=== PATIENT | female | born 1970 | race Caucasian/White ===

== ENCOUNTER 2016-10-10 08:49 | Outpatient (CLI) | payer OTHER ==
[2016-10-10 09:14] LABS: BASOPHILS % 0.2 (0.0-1.5); EOSINOPHILS % 0.8 % (0.0-6.8); LYMPHOCYTES # 1.9 # k/uL (0.6-4.0); MEAN CORPUSCULAR HEMOGLOBIN 35.5 pg (28.0-34.0); MONOCYTES # 0.2 # k/uL (0.0-0.9); MONOCYTES % 4.8 % (0.0-11.0); NEUTROPHILS # 2.7 # k/uL (1.4-7.7)
[2016-10-10 10:03] LABS: eGFR (African) > 60; eGFR (Non-African) > 60
[2016-10-10 16:42] LABS: VALPROIC ACID LEVEL 39.3 ug/mL (50.0-100.0)
== END 2016-10-10 08:50 ==
LOC: LAB 08:49
PROVIDERS: ATTEND Nurse Practitioner Psychiatric/Mental Health
DX: Z51.81 Encounter for therapeutic drug level monitoring (principal); Z79.899 Other long term (current) drug therapy
CPT/HCPCS: 36415; 80053; 80061; 80156; 80164; 85025

== ENCOUNTER 2017-04-10 09:20 | Outpatient (CLI) | payer OTHER | END 2017-04-10 09:30 | LOC: LAB 09:20 | PROVIDERS: ATTEND Nurse Practitioner Psychiatric/Mental Health | DX: Z51.81 Encounter for therapeutic drug level monitoring (principal) | CPT/HCPCS: 36415; 84443 ==

== ENCOUNTER 2017-06-26 08:50 | Outpatient (CLI) | payer OTHER ==
[2017-06-26 09:23] LABS: BASOPHILS % 0.3 (0.0-1.5); EOSINOPHILS % 1.4 % (0.0-6.8); MEAN CORPUSCULAR HEMOGLOBIN 32.8 pg (28.0-34.0); MEAN CORPUSCULAR VOLUME 101.5 fl (80.0-100.0); MONOCYTES % 4.7 % (0.0-11.0); NEUTROPHILS # 3.5 # k/uL (1.4-7.7)
[2017-06-26 09:40] LABS: eGFR (African) > 60; eGFR (Non-African) > 60
[2017-06-26 18:11] LABS: VALPROIC ACID LEVEL 44.4 ug/mL (50.0-100.0)
== END 2017-06-26 09:00 ==
LOC: LAB 08:50
PROVIDERS: ATTEND Nurse Practitioner Psychiatric/Mental Health
DX: Z51.81 Encounter for therapeutic drug level monitoring (principal)
CPT/HCPCS: 36415; 80053; 80156; 80164; 85025

== ENCOUNTER 2017-10-09 08:49 | Outpatient (CLI) | payer OTHER ==
[2017-10-09 10:25] LABS: BASOPHILS % 0.1 (0.0-1.5); EOSINOPHILS % 0.7 % (0.0-6.8); MEAN CORPUSCULAR HEMOGLOBIN 33.2 pg (28.0-34.0); MEAN CORPUSCULAR VOLUME 103.6 fl (80.0-100.0); MONOCYTES % 4.2 % (0.0-11.0); NEUTROPHILS # 2.9 # k/uL (1.4-7.7)
[2017-10-09 10:49] LABS: eGFR (African) > 60; eGFR (Non-African) > 60
[2017-10-09 17:41] LABS: VALPROIC ACID LEVEL 35.2 ug/mL (50.0-100.0)
== END 2017-10-09 08:50 ==
LOC: LAB 08:49
PROVIDERS: ATTEND Nurse Practitioner Psychiatric/Mental Health
DX: Z79.899 Other long term (current) drug therapy (principal); Z51.81 Encounter for therapeutic drug level monitoring
CPT/HCPCS: 36415; 80053; 80061; 80156; 80164; 82306; 84443; 85025

== ENCOUNTER 2018-03-14 13:05 | Emergency (ER) | payer OTHER ==
--- NOTE | 2018-03-14 13:47 | ED Physician Documentation ---
Fall - HISTORIAN Historian: patient, other (critical care rn) - HPI Stated Complaint: Left ankle pain Chief Complaint: Lower Extremity Injury Additional Information: fell 0200hrs w/ rt ankle pain swelling bruising walks/w/asst.denies other injury Where: home Context: lost balance r: moderate Associated Symptoms:: no loss of consciousness Location of Pain/Injury: denies: head, neck Injury to Right Extremity: ankle Injury to Left Extremity: none - ROS CONST: no problems NEURO: denies: dizziness, anxiety MS/SKIN/LYMPH: denies: weakness EYES/ENT: none CVS/RESP: none GI/: denies: problems urinating, nausea, vomiting - PAST HX Past History: other (mild MR mood disorder gerd lo thryoid seizure) Allergies/Adverse Reactions: Allergies Allergy/AdvReac Type Severity Reaction Status Date / Time omeprazole [From Prilosec] Allergy Diarrhea Verified 03/14/18 13:29 omeprazole magnesium Allergy Diarrhea Verified 03/14/18 13:29 [From Prilosec] Home Medications: Ambulatory Orders Medication Instructions Recorded Acetaminophen [Tylenol Extra 500 mg PO 2 tabs po tid u2 12/08/12 Strength] Alprazolam [Xanax] 0.5 mg PO BID u2 12/08/12 Bismuth Subsalicylate 262 mg PO 30cc q 4 hr PRN 12/08/12 [Pepto-Bismol] Ca Cmb No.1/Vit D3/B-6/FA/B12 1 each PO DAILY u2 12/08/12 [Vitamin D3 1,000 Unit Tablet] Cough Drops 1 each MM PRN 12/08/12 Diphenhydramine HCl 25 mg PO 2 po q 6 hr PRN u2 12/08/12 Docusate Sodium [Colace] 100 mg PO BID av 12/08/12 Eucalyptus Oil/Menthol/Camphor 85 gm TP PRN 12/08/12 [Vicks Vaporub Cream] Fiber-Tabs 625 mg PO TID u2 12/08/12 Ibuprofen [Advil] 200 mg PO 2 tabs q 6 hr PRN u2 12/08/12 Loratadine [Claritin] 10 mg PO DAILY u2 12/08/12 Mag Hydrox/Al Hydrox/Simeth 355 ml PO 2 to 4 tsp PRN 12/08/12 [Mylanta Maximum Strength Liq] Magnesium Hydroxide [Milk Of 400 mg PO 2 to 4 tbs 1xdaily PRN 12/08/12 Magnesia] [place] 3 1,000 Mg Softgel 1 each PO 2 tabs at hs av 12/08/12 Ranitidine HCl [Zantac] 150 mg PO BID u2 12/08/12 Titanium Dioxide/Oxyben/Cinox 120 ml TP PRN 12/08/12 [Sunblock Spf30+ Lotion] Alprazolam [Xanax XR] 1 mg PO HS 03/14/18 Carbamazepine [Tegretol] 200 mg PO TID 03/14/18 Chlorpromazine HCl [Chlorpromazine 50 mg PO BID 03/14/18 HCl] Divalproex Sodium [Divalproex 500 mg PO TID 03/14/18 Sodium ER] Fluticasone Propionate [Flonase] 03/14/18 Norethindrone-Ethinyl Estrad 1 each PO DAILY 03/14/18 [Pirmella] Omeprazole [Omeprazole] 20 mg PO DAILY 03/14/18 - SOCIAL HX Smoking History: non-smoker Alcohol Use: none Drug Use: none - FAMILY HX Family History: none - REVIEWED ASSESSMENTS Nursing Assessment Reviewed: Yes Vitals Reviewed: Yes ED Results Lab/Radiology - Radiology Radiology Impressions: rad says poss avulsion fx but clin we suspect just sprain - Orders Orders: ED Orders Category Date Time Status LEFT ANKLE [ANKLE 3 VIEWS OR MORE] [RAD] Stat Exams 03/14/18 Ordered Fall Physical Exam - Physical Exam General Appearance: mild distress, moderate distress Head: non-tender, no swelling, no obvious injury Neck: non-tender, painless ROM Eye: MARIO ALBERTO, EOMI Resp/CVS: chest non-tender, no ecchymosis, breath sounds nml, no resp. distress Abdomen: soft, non-tender Neuro: oriented x3 Skin: color nml, no rash. No: cyanosis Extremities: painful weight bearing Joint: No: joints nml, nml ROM, Nml gait/weight bearing - [place] Coma Score Eyes Open: Spontaneous Speech: Oriented Motor: Obeys Commands Discharge Clincal Impression: fall w/poss avulsion fx lt ankle Referrals: Mira Pelaez MD [Primary Care Provider] - 2 Days Comments: daniel bandage and walker. see ortho if not better sev days Condition: Good Disposition: 01 HOME, SELF-CARE Decision to Admit: NO Decision Time: 14:06
--- NOTE | 2018-03-14 13:53 | Diagnostic Imaging Report ---
JOE NOEL [facility] [address] [facility].[address] [id number] Report Submission Date: Mar 14, 2018 1:49:06 PM CDT Patient Study Name: BEBA HUNTER Date: Mar 14, 2018 1:33:02 PM CDT Modality Type: DX Gender: F Description: LOWER EXTREMITY : 68 Institution: [facility] Physician: JOE NOEL Left ankle History: Twisted ankle Three views of the left ankle demonstrate soft tissue swelling which is most pronounced laterally. There is a tiny 1 mm ossific density laterally adjacent to the talus, possibly a tiny avulsion fragment. Otherwise, no osseous abnormalities are noted. Impression: Soft tissue swelling, most pronounced laterally. 1 mm ossific density projecting just lateral to the talus, possibly a tiny avulsion fragment. Electronically signed on Mar 14, 2018 1:49:06 PM CDT by: Randi LEAL
[2018-03-14 14:09] VITALS: BP 118/62
== END 2018-03-14 14:07 | disposition home or self-care (01) ==
LOC: ED 13:05
DX: M25.572 Pain in left ankle and joints of left foot (principal); W19.XXXA Unspecified fall, initial encounter; Y92.018 Other place in single-family (private) house as the place of occurrence of the external cause; Y93.9 Activity, unspecified; Y99.9 Unspecified external cause status
CPT/HCPCS: 73610; 99283

== ENCOUNTER 2018-05-12 09:36 | Outpatient (CLI) | payer OTHER | END 2018-05-12 09:37 | LOC: LAB 09:36 | PROVIDERS: ATTEND Nurse Practitioner Family | DX: Z53.9 Procedure and treatment not carried out, unspecified reason (principal) ==

== ENCOUNTER 2018-05-13 14:32 | Outpatient (CLI) | payer OTHER ==
--- NOTE | 2018-05-13 19:37 | Diagnostic Imaging Report ---
STERLING VAUGHN [facility] [address] [facility] [address] [place] [address]. [id number] Report Submission Date: May 13, 2018 3:07:48 PM CDT Patient Study Name: BEBA HUNTER Date: May 13, 2018 2:44:46 PM CDT Modality Type: CT\SR Gender: F Description: CT BRAIN W/O CONTRAST : 68 Institution: [facility] Physician: STERLING VAUGHN Head CT without contrast History: Seizures. Frequent falls. Technique: Helically acquired images were obtained from the skullbase to the vertex without IV contrast. Findings: The ventricular system is normal in size and configuration. Brain parenchyma demonstrates normal attenuation. There is no positive mass effect or intra/extra-axial hemorrhage. 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 In the absence of known renal disease to generate renal osteodystrophy, these findings would be concerning for either osteopetrosis or Camurati-Engelmann disease. The bony hyperostosis is generating significant narrowing of the internal auditory canals bilaterally. In general, this degree of bony hyperostosis could generate cranial nerve symptomatology due to development of foraminal narrowing. Currently, the orbital fissures and optic foramen are patent. Visualized paranasal sinuses are clear. Mastoid air cells are underdeveloped/essentially nondeveloped and middle ear cavities are quite small secondary to the bony hyperostosis. Impression: No acute intracranial abnormality. 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 Please see body of report for further detail. Electronically signed on May 13, 2018 3:07:48 PM CDT by: Randi LEAL
== END 2018-05-13 14:33 ==
LOC: RAD 14:32
PROVIDERS: ATTEND Nurse Practitioner Family
DX: Z79.899 Other long term (current) drug therapy (principal); R56.9 Unspecified convulsions; Z91.81 History of falling
CPT/HCPCS: 70450

== ENCOUNTER 2018-05-14 08:55 | Outpatient (CLI) | payer OTHER | END 2018-05-14 08:56 | LOC: LAB 08:55 | PROVIDERS: ATTEND Family Medicine | DX: Z79.899 Other long term (current) drug therapy (principal); G40.909 Epilepsy, unspecified, not intractable, without status epilepticus; R29.6 Repeated falls | CPT/HCPCS: 36415; 80171; 82607; 82746 ==

== ENCOUNTER 2018-08-18 08:05 | Outpatient (CLI) | payer OTHER ==
[2018-08-18 08:33] LABS: BASOPHILS % 0.2 (0.0-1.5); EOSINOPHILS % 1.5 % (0.0-6.8); MEAN CORPUSCULAR HEMOGLOBIN 32.5 pg (28.0-34.0); MONOCYTES % 6.2 % (0.0-11.0); NEUTROPHILS # 3.2 # k/uL (1.4-7.7)
[2018-08-18 08:50] LABS: eGFR (Non-African) > 60
[2018-08-18 17:21] LABS: VALPROIC ACID LEVEL 54.7 ug/mL (50.0-100.0)
== END 2018-08-18 08:10 | disposition home or self-care (01) ==
LOC: LAB 08:05
PROVIDERS: ATTEND Psychiatry & Neurology Psychiatry
DX: Z79.899 Other long term (current) drug therapy (principal); Z51.81 Encounter for therapeutic drug level monitoring
CPT/HCPCS: 36415; 80053; 80156; 80164; 84443; 85025